=== PATIENT | male | born 1960 | race Caucasian/White ===

== ENCOUNTER 2018-11-10 11:42 | Observation (INO) ==
[2018-11-10] MEDS ORDERED: 0.9 % Sodium Chloride 1,000 ML IVC ONE (11:48)
[2018-11-10] MEDS ORDERED: Ondansetron 4 MG/2 ML VIAL IVP ONE ×2 (11:50→13:20)
[2018-11-10] MEDS ORDERED: Isovue-370 500 ML BOTTLE IVP ONE (11:50)
--- NOTE | 2018-11-10 12:00 | Emergency Department Note ---
Disposition Clinical Impression: Episode of syncope Qualifiers: Syncope type: unspecified Qualified Code(s): R55 - Syncope and collapse Disposition: Admitted As Inpatient Condition: Good Referrals: Jennifer Ochoa MD [Primary Care Provider] - Forms: ED Satisfaction Letter Time of Disposition: 15:02 General Adult HPI - General Chief complaint: ED Syncope Stated complaint: Syncope, Diaphoretic Time Seen by Provider: 11/10/18 11:48 Source: patient, family Limitations: no limitations Nursing Notes Reviewed: Yes Vital Signs Reviewed: Yes - History of Present Illness HPI Narrative: 58-year-old male presenting to the emergency department after syncopizing. [facility] get curtis removed after carpal tunnel surgery. After his curtis were removed patient passed out and became unresponsive for 2 minutes. He was very diaphoretic. Patient was neatly brought to the emergency department. When the patient arrived he states that this has happened one time before and that is when happens when he misses his Effexor. At this time he did denies any chest pain or shortness of breath. He discloses nausea but denies any vomiting. Pain Scale: 0 - Related Data Home Medications Medication Instructions Recorded Confirmed Montelukast [Singulair] 10 mg PO DAILY 02/27/16 11/10/18 Venlafaxine XR (24 HR) [Effexor XR] 75 mg PO DAILY 02/27/16 11/10/18 Cetirizine HCl [Zyrtec] 10 mg PO PRN PRN 10/28/18 11/10/18 Fluticasone Propionate Nasal 1 spray NS PRN PRN 10/28/18 11/10/18 [Flonase] Losartan Potassium 100 mg PO DAILY 10/28/18 11/10/18 hydroCHLOROthiazide 25 mg PO DAILY 10/28/18 11/10/18 [Hydrochlorothiazide] lamoTRIgine [Lamictal] 100 mg PO QAM 10/28/18 11/10/18 Allergies Allergy/AdvReac Type Severity Reaction Status Date / Time ciprofloxacin [From Cipro] Allergy Anaphylaxis Verified 11/10/18 13:18 All systems ED: reviewed and negative except as stated. Constitutional: Denies: fever Eyes: Reports: as per HPI ENT ED: Reports: as per HPI Cardiovascular: Denies: chest pain Respiratory: Denies: dyspnea Gastrointestinal: Reports: nausea Genitourinary: Reports: as per HPI Musculoskeletal: Reports: as per HPI Integumentary: Reports: as per HPI Neurological: Reports: other (Syncope) Psychiatric: Reports: as per HPI Endocrine: Reports: as per HPI Hematological/Lymphatic: Reports: as per HPI Allergic/Immunologic: Reports: as per HPI Past Medical History - Past Medical History Attestation: Yes The following information was validated with the patient. Medical history: Reports: hypertension Psychiatric history: Reports: depression - Social History Smoking Status: Never smoker Smokeless Tobacco Status: Yes Alcohol use: Reports: none Drug use: Reports: none Physical Exam - General Limitations: no limitations General appearance: alert, in no apparent distress - Head Head exam: atraumatic, normocephalic, normal inspection - Eye Eye exam: Present: EOMI. Absent: scleral icterus - ENT ENT exam: mucous membranes moist - Neck Neck exam: Present: full ROM - Chest Chest inspection: Present: symmetric chest wall rise - Respiratory Respiratory exam: Present: normal lung sounds bilaterally. Absent: respiratory distress, wheezes - Cardiovascular Cardiovascular exam: Present: regular rate, normal rhythm, normal heart sounds - Abdominal Exam Abdominal exam: Present: soft, Non-Tender. Absent: distention, guarding, rebound - Extremities Exam Extremities exam: Present: full ROM - Neurological Exam Neurological exam: Present: alert, oriented X3 - Psychiatric Psychiatric exam: Present: normal affect - Skin Skin exam: Present: diaphoresis Course Course Narrative: 58-year-old male presenting after a syncopal episode. In the room he is alert and oriented 3 and hemodynamically stable. Physical exam is significant for diaphoresis but is otherwise benign. At this time will obtain basic laboratory analysis including troponin, EKG. We will also obtain a CT of the head and a CTA of the chest for PE rule out. Disposition pending. Patient agrees with this plan. - Reevaluation(s) Reevaluation #1: Patient's laboratory analysis, CT of the head and CTA of the chest within normal limits. Patient has been stable throughout his stay. He remains alert and oriented 3 and hemodynamically stable. Due to patient's syncope and prolonged time to get back to baseline we will plan to admit him for further evaluation and treatment. Patient agrees with this plan. Vital Signs Temperature 97.8 F 11/10/18 11:43 Pulse Rate 56 11/10/18 11:43 Respiratory Rate 20 11/10/18 11:43 Blood Pressure 165/88 11/10/18 11:43 O2 Sat by Pulse Oximetry 93 11/10/18 11:43 Temperature 97.8 F 11/10/18 11:43 Pulse Rate 59 11/10/18 13:18 Respiratory Rate 18 11/10/18 13:18 Blood Pressure 184/91 11/10/18 13:18 O2 Sat by Pulse Oximetry 100 11/10/18 13:18 Oxygen Delivery Oxygen Delivery Room Air Medical Decision Making - Lab Data Result diagrams: 11/10/18 11:56 11/10/18 11:56 Lab Results 11/10/18 11/10/18 11/10/18 Range/Units 11:56 11:56 11:56 WBC 11.4 H (4.3-11.1) K/mcL RBC 4.96 (4.19-5.50) M/mcL Hgb 15.4 (12.9-16.9) g/dL Hct 45.6 (37.5-50.1) % MCV 91.9 (83.0-100.0) fL MCH 31.0 (28.0-33.3) pg MCHC 33.8 (31.6-35.5) g/dL RDW 11.9 (11.5-14.5) % Plt Count 283 (140-400) K/mcL MPV 9.9 (9.4-12.4) fL Immature Gran % 0.5 (0-4) % Seg Neutrophils % 58.3 % Lymphocytes % 29.9 % Monocytes % 8.8 % Eosinophils % 1.8 % Basophils % 0.7 % Neutrophils # 6.7 (1.6-8.9) K/mcL Lymphocytes # 3.4 (0.6-4.6) K/mcL Monocytes # 1.0 (0.0-1.3) K/mcL Eosinophils # 0.2 (0.0-0.6) K/mcL Basophils # 0.1 (0.0-0.2) K/mcL PT 11.1 (9.4-12.1) Seconds INR 1.0 APTT 26.4 (26.0-36.0) Seconds Sodium 139 (136-145) mEq/L Potassium 3.2 L (3.5-5.1) mEq/L Chloride 104 (98-107) mEq/L Carbon Dioxide 23 (23-29) mEq/L BUN 16 (6-20) mg/dL Creatinine 0.99 (0.70-1.30) mg/dL Est GFR ( Amer) > 60 (> 60) Est GFR (Non-Af Amer) > 60 (> 60) BUN/Creatinine Ratio 16 (6-26) Glucose 114 H (70-105) mg/dL POC Glucose (70-99) mg/dL Calculated Osmolality 290 (280-300) Calcium 9.4 (8.6-10.3) mg/dL Troponin I < 0.03 (< 0.04) ng/mL 11/10/18 Range/Units 11:57 WBC (4.3-11.1) K/mcL RBC (4.19-5.50) M/mcL Hgb (12.9-16.9) g/dL Hct (37.5-50.1) % MCV (83.0-100.0) fL MCH (28.0-33.3) pg MCHC (31.6-35.5) g/dL RDW (11.5-14.5) % Plt Count (140-400) K/mcL MPV (9.4-12.4) fL Immature Gran % (0-4) % Seg Neutrophils % % Lymphocytes % % Monocytes % % Eosinophils % % Basophils % % Neutrophils # (1.6-8.9) K/mcL Lymphocytes # (0.6-4.6) K/mcL Monocytes # (0.0-1.3) K/mcL Eosinophils # (0.0-0.6) K/mcL Basophils # (0.0-0.2) K/mcL PT (9.4-12.1) Seconds INR APTT (26.0-36.0) Seconds Sodium (136-145) mEq/L Potassium (3.5-5.1) mEq/L Chloride (98-107) mEq/L Carbon Dioxide (23-29) mEq/L BUN (6-20) mg/dL Creatinine (0.70-1.30) mg/dL Est GFR ( Amer) (> 60) Est GFR (Non-Af Amer) (> 60) BUN/Creatinine Ratio (6-26) Glucose (70-105) mg/dL POC Glucose 109 H (70-99) mg/dL Calculated Osmolality (280-300) Calcium (8.6-10.3) mg/dL Troponin I (< 0.04) ng/mL - EKG Data EKG #1 EKG attestation: Yes I reviewed and interpreted this EKG. EKG results narrative: Sinus rhythm. 58 bpm. VA interval 173, QRS 98, QTC 451. No sign of acute ST s egment elevation or ischemia. Compared to previous EKG completed on 02/24/2016 no significant changes noted
[2018-11-10 12:13] LABS: Basophils # 0.1 K/mcL (0.0-0.2); Basophils % 0.7 %; Eosinophils # 0.2 K/mcL (0.0-0.6); Eosinophils % 1.8 %; Hematocrit 45.6 % (37.5-50.1); Hemoglobin 15.4 g/dL (12.9-16.9); Immature Granulocytes % 0.5 % (0-4); Lymphocytes # 3.4 K/mcL (0.6-4.6); Lymphocytes % 29.9 %; Mean Corpuscular HGB Conc 33.8 g/dL (31.6-35.5); Mean Corpuscular Volume 91.9 fL (83.0-100.0); Mean Platelet Volume 9.9 fL (9.4-12.4); Monocytes % 8.8 %; Neutrophils # 6.7 K/mcL (1.6-8.9); Platelet Count 283 K/mcL (140-400); Red Blood Count 4.96 M/mcL (4.19-5.50); Red Cell Distribution Width 11.9 % (11.5-14.5); Segmented Neutrophils % 58.3 %; White Blood Count 11.4 K/mcL (4.3-11.1)
[2018-11-10 12:21] LABS: Prothrombin Time 11.1 Seconds (9.4-12.1)
[2018-11-10 12:24] LABS: Activated Partial Thrombo Time 26.4 Seconds (26.0-36.0)
--- NOTE | 2018-11-10 12:39 | Emergency Department Note ---
Disposition Clinical Impression: Episode of syncope Qualifiers: Syncope type: unspecified Qualified Code(s): R55 - Syncope and collapse Disposition: Admitted As Inpatient Condition: Good Referrals: Jennifer Ochoa MD [Primary Care Provider] - Forms: ED Satisfaction Letter Time of Disposition: 14:35 General Adult HPI - General Chief complaint: ED Syncope Stated complaint: Syncope, Diaphoretic Time Seen by Provider: 11/10/18 11:48 Source: patient, family Limitations: no limitations - History of Present Illness Pain Scale: 0 - Related Data Home Medications Medication Instructions Recorded Confirmed Montelukast [Singulair] 10 mg PO DAILY 02/27/16 11/10/18 Venlafaxine XR (24 HR) [Effexor XR] 75 mg PO DAILY 02/27/16 11/10/18 Cetirizine HCl [Zyrtec] 10 mg PO PRN PRN 10/28/18 11/10/18 Fluticasone Propionate Nasal 1 spray NS PRN PRN 10/28/18 11/10/18 [Flonase] Losartan Potassium 100 mg PO DAILY 10/28/18 11/10/18 hydroCHLOROthiazide 25 mg PO DAILY 10/28/18 11/10/18 [Hydrochlorothiazide] lamoTRIgine [Lamictal] 100 mg PO QAM 10/28/18 11/10/18 Allergies Allergy/AdvReac Type Severity Reaction Status Date / Time ciprofloxacin [From Cipro] Allergy Anaphylaxis Verified 11/10/18 13:18 Past Medical History - Past Medical History Medical history: Reports: hypertension Psychiatric history: Reports: depression - Social History Smoking Status: Never smoker Smokeless Tobacco Status: Yes Alcohol use: Reports: none Drug use: Reports: none Physical Exam - General Limitations: no limitations General appearance: alert, in no apparent distress Course Vital Signs Temperature 97.8 F 11/10/18 11:43 Pulse Rate 56 11/10/18 11:43 Respiratory Rate 20 11/10/18 11:43 Blood Pressure 165/88 11/10/18 11:43 O2 Sat by Pulse Oximetry 93 11/10/18 11:43 Temperature 97.8 F 11/10/18 11:43 Pulse Rate 59 11/10/18 13:18 Respiratory Rate 18 11/10/18 13:18 Blood Pressure 184/91 11/10/18 13:18 O2 Sat by Pulse Oximetry 100 11/10/18 13:18 Oxygen Delivery Oxygen Delivery Room Air Medical Decision Making - Lab Data Result diagrams: 11/10/18 11:56 11/10/18 11:56 Lab Results 11/10/18 11/10/18 11/10/18 Range/Units 11:56 11:56 11:56 WBC 11.4 H (4.3-11.1) K/mcL RBC 4.96 (4.19-5.50) M/mcL Hgb 15.4 (12.9-16.9) g/dL Hct 45.6 (37.5-50.1) % MCV 91.9 (83.0-100.0) fL MCH 31.0 (28.0-33.3) pg MCHC 33.8 (31.6-35.5) g/dL RDW 11.9 (11.5-14.5) % Plt Count 283 (140-400) K/mcL MPV 9.9 (9.4-12.4) fL Immature Gran % 0.5 (0-4) % Seg Neutrophils % 58.3 % Lymphocytes % 29.9 % Monocytes % 8.8 % Eosinophils % 1.8 % Basophils % 0.7 % Neutrophils # 6.7 (1.6-8.9) K/mcL Lymphocytes # 3.4 (0.6-4.6) K/mcL Monocytes # 1.0 (0.0-1.3) K/mcL Eosinophils # 0.2 (0.0-0.6) K/mcL Basophils # 0.1 (0.0-0.2) K/mcL PT 11.1 (9.4-12.1) Seconds INR 1.0 APTT 26.4 (26.0-36.0) Seconds Sodium 139 (136-145) mEq/L Potassium 3.2 L (3.5-5.1) mEq/L Chloride 104 (98-107) mEq/L Carbon Dioxide 23 (23-29) mEq/L BUN 16 (6-20) mg/dL Creatinine 0.99 (0.70-1.30) mg/dL Est GFR ( Amer) > 60 (> 60) Est GFR (Non-Af Amer) > 60 (> 60) BUN/Creatinine Ratio 16 (6-26) Glucose 114 H (70-105) mg/dL POC Glucose (70-99) mg/dL Calculated Osmolality 290 (280-300) Calcium 9.4 (8.6-10.3) mg/dL Troponin I < 0.03 (< 0.04) ng/mL 11/10/18 Range/Units 11:57 WBC (4.3-11.1) K/mcL RBC (4.19-5.50) M/mcL Hgb (12.9-16.9) g/dL Hct (37.5-50.1) % MCV (83.0-100.0) fL MCH (28.0-33.3) pg MCHC (31.6-35.5) g/dL RDW (11.5-14.5) % Plt Count (140-400) K/mcL MPV (9.4-12.4) fL Immature Gran % (0-4) % Seg Neutrophils % % Lymphocytes % % Monocytes % % Eosinophils % % Basophils % % Neutrophils # (1.6-8.9) K/mcL Lymphocytes # (0.6-4.6) K/mcL Monocytes # (0.0-1.3) K/mcL Eosinophils # (0.0-0.6) K/mcL Basophils # (0.0-0.2) K/mcL PT (9.4-12.1) Seconds INR APTT (26.0-36.0) Seconds Sodium (136-145) mEq/L Potassium (3.5-5.1) mEq/L Chloride (98-107) mEq/L Carbon Dioxide (23-29) mEq/L BUN (6-20) mg/dL Creatinine (0.70-1.30) mg/dL Est GFR ( Amer) (> 60) Est GFR (Non-Af Amer) (> 60) BUN/Creatinine Ratio (6-26) Glucose (70-105) mg/dL POC Glucose 109 H (70-99) mg/dL Calculated Osmolality (280-300) Calcium (8.6-10.3) mg/dL Troponin I (< 0.04) ng/mL Attestation Statement - Attestation Attestation: Omayra Rosa D.O., examined this patient and my medical decision-making was reviewed with the Resident Physician. I agree with the documented findings, disposition and treatment plan as described except to the extent set forth below. This is a 58-year-old male presenting from the orthopedic clinic due to a syncopal episode. The patient was at the clinic having his sutures removed from a recent cubital tunnel and carpal tunnel surgery. states that as the staff was walking out of the room the patient went unresponsive. She believes she was out for approximately 2 minutes. No seizure-like activity. He was rather diaphoretic during that time. Patient awoke without a postictal phase. States that he felt tired and woke up this morning. He denies any chest pain or shortness of breath. No neck pain, back pain or abdominal pain. He actually says this happened before when he missed his Effexor. He has no history of CAD, DVT or PE. General: Alert, diaphoretic HENT: Normocephalic, Atraumatic Neck: No JVD Cardiovascular: Bradycardic, regular rhythm No appreciable murmurs Respiratory: Lungs CTAB. No wheezing/rhonchi Abdominal: Soft, non tender. No peritoneal findings Extremities: No peripheral edema Neuro: Alert, oriented 3, cranial nerves II through XII grossly intact, normal sensation in the upper and lower extremities bilaterally. Normal motor strength in the upper and lower extremities bilaterally. Mentating appropriately, No focal deficits Skin: Warm, Dry Plan: EKG, CT head, CTA of the chest given recent procedure and syncope, labs. Patient received some IV fluids and Zofran. Anticipate admission. ED Procedure Note: EKG interpretation - I agree with the resident physician's documentation and interpretation of the patient's EKG. Sinus bradycardia with rate of 58 beats or minute. Normal axis. Normal int ervals. Normal R-wave progression. T-wave inversions in lead 3. No gross ST elevations or depressions. No acute ischemic findings. Imaging and labs reviewed. No gross derangements. Patient will be admitted for syncope.
[2018-11-10 12:40] LABS: BUN/Creatinine Ratio 16 (6-26); Blood Urea Nitrogen 16 mg/dL (6-20); Calcium 9.4 mg/dL (8.6-10.3); Carbon Dioxide 23 mEq/L (23-29); Chloride 104 mEq/L (98-107); Glucose 114 mg/dL (70-105); Osmolality,Calculated 290 (280-300); Potassium 3.2 mEq/L (3.5-5.1); Sodium 139 mEq/L (136-145); Troponin I < 0.03 ng/mL (< 0.04); eGFR For African Americans > 60 (> 60); eGFR For Non-African Americans > 60 (> 60)
[2018-11-10] MEDS ORDERED: *HR* Promethazine 25 MG/ML VIAL IVP PRN (15:05)
[2018-11-10] MEDS ORDERED: Naloxone 0.4 MG/ML INJ IVP PRN (15:05)
--- NOTE | 2018-11-10 17:10 | Internal Med History&Physical ---
Date of Encounter: 11/10/18 Time of Encounter: 16:47 Internal Medicine - H&P: HPI Chief complaint: Syncope Admitted From: Home Plans for Post Hospital Care: Home History of present illness: Mr. Dietrich is a 58 year old male with hx of HTN, RAIN, and heart murmur presents after an episode of syncope. She recently had carpal tunnel and ulnar nerve release completed and was [facility] today getting curtis removed. Says that they were unwrapping the dressing when he started feeling dizzy and sweating profusely. Says that the last thing he remembers is his fanning air on him to cool off. Believes he lost consciousness for about 2 minutes after which she is brought to the emergency department. Denies chest pain before event or having issues with chest pain possibly. No clonic tonic activity after the event. No said he missed all of his morning medications this morning because he was in a meek to get to the orthopedic office. Says that he has had severe systemic symptoms of lightheadedness/dizziness when he missed doses of Effexor in the past but has never had a loss of consciousness event. Recently hospitalized earlier this year at [facility] after having a systemic allergic reaction to ciprofloxacin. Says that he underwent a stress test that was negative. Underwent echocardiography and he says that they discovered "a murmur." No dyspnea on exertion or lower extremity edema. No issues with chest pain. Past Med Surg Social Fam HX - Past Medical History Medical history: hypertension Additional medical history: ganglion cyst of right foot. depression. chewing tobacco use Psychiatric history: depression - Past Surgical History Additional surgical history: shunt in left ear, Carpal tunnel sx left wrist and sx to left elbow - Social History Smoking Status: Never smoker Smokeless Tobacco Status: Yes Alcohol use: none Drug use: none Internal Medicine - H&P: Meds Montelukast [Singulair] 10 mg PO DAILY 02/27/16 [History] Venlafaxine XR (24 HR) [Effexor XR] 75 mg PO DAILY 02/27/16 [History] Cetirizine HCl [Zyrtec] 10 mg PO PRN PRN 10/28/18 [History] Fluticasone Propionate Nasal [Flonase] 1 spray NS PRN PRN 10/28/18 [History] Losartan Potassium 100 mg PO DAILY 10/28/18 [History] hydroCHLOROthiazide [Hydrochlorothiazide] 25 mg PO DAILY 10/28/18 [History] lamoTRIgine [Lamictal] 100 mg PO QAM 10/28/18 [History] Allergy/AdvReac Type Severity Reaction Status Date / Time ciprofloxacin [From Cipro] Allergy Anaphylaxis Verified 11/10/18 13:18 Review of systems: General: Fevers / Chills / Weight loss / Night sweats / diaphoresis Eyes: Blurry Vision / Change in Vision HENT: Ear Pain / Ear Drainage / Rhinorrhea / Throat Pain / Lymphadenopathy Cardiovascular: Chest Pain / Palpatations / Orthopnea / BANSAL / Weight gain / lightheadedness / dizziness Lungs: Dyspnea / Wheezing / Cough / Sputum production / Pleurisy Abdomen: Abdomen pain / Abdominal distention / Nausea / Vomiting / Diarrhea / Const : Dysuria / Urinary Frequency / Urinary Urgency / Hematuria Extremities: LE edema / Ext pain / Ext erythema Skin: Rashes / Abrasions / Contusions Psych: Hallucinations / Anxiety / Depression Neuro: Weakness / Numbness / Tingling / Facial Droop / Dysphagia - Constitutional Vitals: Temp Pulse Resp BP Pulse Ox 98.0 F 65 18 148/60 94 11/10/18 16:09 11/10/18 16:11/10/18 16:11/10/18 16:11/10/18 16:09 Exam: General: Ill-appearing and in no acute distress HEENT: No erythema of posterior pharynx. No exudates. Lymphatics: No mandibular or cervical lymphadenopathy Cardiovascular: RRR. Systolic heart murmur at left sternal border. No chest wall tenderness. Lungs: Clear to auscelltation bilaterally. Regular chest rise. Abdomen: Non-tender. No rebound or gaurding. Nl bowel sounds. Extremities: No edema. 2+ pulses radial and pedal pulses Skin: No rahses, abrasions, or contusions. Nl cap refill. Psych: Nl attention. 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 5/5 strength. Sensation to light touch and pinprick intact. Internal Med - H&P Results - Labs CBC & Chem 7: 11/10/18 11:56 11/10/18 11:56 Labs: Short CBC 11/10/18 Range/Units 11:56 WBC 11.4 H (4.3-11.1) K/mcL Hgb 15.4 (12.9-16.9) g/dL Hct 45.6 (37.5-50.1) % Plt Count 283 (140-400) K/mcL Neutrophils # 6.7 (1.6-8.9) K/mcL BMP 11/10/18 11:56 Sodium 139 Potassium 3.2 L Chloride 104 Carbon Dioxide 23 BUN 16 Creatinine 0.99 Glucose 114 H Calcium 9.4 Cardiac Enzymes 11/10/18 Range/Units 11:56 Troponin I < 0.03 (< 0.04) ng/mL - Impressions ITS Impressions Chest X-Ray 11/10/18 13:10 IMPRESSION: No acute process. D/ / Jez San MD / Jez San MD Interpreting Provider: Jez San MD Chest CTA 11/10/18 14:25 IMPRESSION: No evidence of pulmonary embolism or acute pulmonary abnormality. D/ / Tristen Rosas MD / Tristen Rosas MD Interpreting Provider: Tristen Rosas MD Head CT 11/10/18 14:25 IMPRESSION: No acute intracranial abnormality. D/ / Charlie Mojica MD / Charlie Mojica MD Interpreting Provider: Charlie Mojica MD - Assessment and Plan (1) Episode of syncope Current Visit: Yes Status: Acute Qualifiers: Syncope type: unspecified Qualified Code(s): R55 - Syncope and collapse (2) Hx of cardiac murmur Current Visit: Yes Status: Acute (3) RAIN (generalized anxiety disorder) Current Visit: Yes Status: Acute (4) Essential hypertension Current Visit: Yes Status: Acute - Summary of Assessment and Plan Summary of Assessment and Plan: Syncope with Prolonged LOC Event Hx of Heart Murmur Patient with hx of HTN, RAIN, and heart murmur presents after an episode of syncope in the setting of missing a home doses of medications, stable vital signs on admission, systolic murmur on physical exam, unremarkable labs, no changes on EKG, and unremarkable initial imaging. -Etiology of event not entirely clear -Sounds to have had a vasovagal event due to pain/discomfort from removal of dressing, however, prolonged loss of consciousness would be unusual with this -History of murmur and systolic murmur on physical exam so valvular heart disease a consideration -Could be related to missing Effexor dose but again this would be a strange withdrawal reaction -No evidence of Brugada's, WPW, or prlonged qtc on EKG -No evidence of ischemic event (trop and EKG neg) or PE (CTA neg) PLAN: - Monitor on telemetry overnight - Echocardiogram - Obtain records from [facility] Generalized Anxiety Disorder - Continue home medications Essential Hypertension - Continue home medications - Time Spent With Patient Total time spent is greater than 50% in coordination of care (as documented) at patient's floor/unit and/or counseling patient:
[2018-11-10] MEDS ORDERED: Fluticasone Propionate Nasal 50 MCG/SPRAY BOTTLE NS PRN (17:25)
[2018-11-10] MEDS ORDERED: Loratadine 10 MG TABLET PO PRN (17:25)
[2018-11-10] MEDS: Venlafaxine XR (24 HR) 75 MG CAP.ER.24H PO SCH (18:46)
[2018-11-10] MEDS: hydroCHLOROthiazide 25 MG TABLET PO SCH (18:47)
[2018-11-10] MEDS: lamoTRIgine 100 MG TABLET PO SCH (18:48)
--- NOTE | 2018-11-10 22:01 | Electrocardiograph Report ---
[place] [id number] Test Date: 2018-11-10 Pat Name: John Dietrich Department: EXAM1 Room: 3B23 Gender: M Division Leader: : 1960 Requested By: Delmi Gaxiola Order Number: [id number] Reading MD: Marisela Flowers Measurements Intervals Mozier Rate: 58 P: 37 FL: 173 QRS: 17 QRSD: 98 T: 1 QT: 459 QTc: 451 Interpretive Statements Sinus rhythm Borderline T abnormalities, inferior leads Electronically Signed On 11-10-2018 21:59:38 EDT by Marisela Flowers
[2018-11-11 02:07] LABS: Basophils # 0.1 K/mcL (0.0-0.2); Basophils % 0.5 %; Eosinophils # 0.2 K/mcL (0.0-0.6); Eosinophils % 1.3 %; Hematocrit 40.4 % (37.5-50.1); Immature Granulocytes % 0.4 % (0-4); Lymphocytes # 2.5 K/mcL (0.6-4.6); Mean Corpuscular HGB Conc 33.4 g/dL (31.6-35.5); Mean Corpuscular Volume 92.9 fL (83.0-100.0); Monocytes # 0.7 K/mcL (0.0-1.3); Monocytes % 5.8 %; Neutrophils # 9.1 K/mcL (1.6-8.9); Platelet Count 226 K/mcL (140-400); Red Blood Count 4.35 M/mcL (4.19-5.50); White Blood Count 12.7 K/mcL (4.3-11.1)
[2018-11-11 02:09] LABS: Hemoglobin 13.5 g/dL (12.9-16.9)
[2018-11-11 02:24] LABS: BUN/Creatinine Ratio 16 (6-26); Blood Urea Nitrogen 14 mg/dL (6-20); Calcium 8.8 mg/dL (8.6-10.3); Carbon Dioxide 25 mEq/L (23-29); Chloride 103 mEq/L (98-107); Glucose 111 mg/dL (70-105); Osmolality,Calculated 285 (280-300); Potassium 3.9 mEq/L (3.5-5.1); Sodium 137 mEq/L (136-145); eGFR For African Americans > 60 (> 60); eGFR For Non-African Americans > 60 (> 60)
[2018-11-11] MEDS: hydroCHLOROthiazide 25 MG TABLET PO SCH (08:08)
[2018-11-11] MEDS: lamoTRIgine 100 MG TABLET PO SCH (08:08)
[2018-11-11] MEDS: Venlafaxine XR (24 HR) 75 MG CAP.ER.24H PO SCH (08:08)
[2018-11-11 11:26] VITALS: BP 154/82
--- NOTE | 2018-11-11 13:28 | Discharge Summary ---
Date of Encounter: 11/11/18 Time of Encounter: 13:28 - Discharge Diagnosis (1) Episode of syncope Priority: Primary Status: Acute Qualifiers: Syncope type: unspecified Qualified Code(s): R55 - Syncope and collapse (2) Hx of cardiac murmur Priority: Secondary Status: Acute (3) RAIN (generalized anxiety disorder) Priority: Secondary Status: Acute (4) Essential hypertension Priority: Secondary Status: Acute Hospital course: Mr. Dietrich is a 58 year old male with hx of HTN, RAIN, and heart murmur presented after an episode of syncope while he was getting curtis removed at the orthopedic office from a recent carpal tunnel and ulnar nerve release. Patient believes that was related to forgetting his dose of Effexor in the morning of, however, more likely a vasovagal response to pain during staple removal. Says he has a history of murmur. Echocardiogram completed with evidence of mild tricuspid and pulmonic valve regurgitation, which would not explain patient's presentation. No notable EKG abnormalities and no events on telemetry during hospital stay. Patient was advised to take his medications as directed, follow up with his primary care provider, and get referred for an outpatient sleep study given NELLY habitus and right-sided valve findings on echocardiogram. Discharge discussed with: patient - Time Spent with Patient Total time spent providing and/or coordinating discharge services: 25 minutes Time spent: Less than 30 minutes - Discharge Medications Prescriptions: Continued Venlafaxine XR (24 HR) [Effexor XR] 75 mg PO DAILY Montelukast [Singulair] 10 mg PO DAILY hydroCHLOROthiazide [Hydrochlorothiazide] 25 mg PO DAILY Cetirizine HCl [Zyrtec] 10 mg PO DAILY PRN PRN Reason: Allergy Symptoms Losartan Potassium 100 mg PO DAILY lamoTRIgine [Lamictal] 100 mg PO QAM Fluticasone Propionate Nasal [Flonase] 1 spray NS DAILY PRN PRN Reason: Allergy Symptoms Home Medications: Montelukast [Singulair] 10 mg PO DAILY 02/27/16 [History] Venlafaxine XR (24 HR) [Effexor XR] 75 mg PO DAILY 02/27/16 [History] Cetirizine HCl [Zyrtec] 10 mg PO DAILY PRN 10/28/18 [History] Fluticasone Propionate Nasal [Flonase] 1 spray NS DAILY PRN 10/28/18 [History] Losartan Potassium 100 mg PO DAILY 10/28/18 [History] hydroCHLOROthiazide [Hydrochlorothiazide] 25 mg PO DAILY 10/28/18 [History] lamoTRIgine [Lamictal] 100 mg PO QAM 10/28/18 [History] Allergies/Adverse Reactions: Allergy/AdvReac Type Severity Reaction Status Date / Time ciprofloxacin [From Cipro] Allergy Anaphylaxis Verified 11/10/18 13:18 Date of admission: 11/10/18 15:12 Primary care physician: Jennifer Ochoa MD - Constitutional Vitals: Temp Pulse Resp BP Pulse Ox 97.9 F 71 16 154/82 94 11/11/18 11:25 11/11/18 11:25 11/11/18 11:25 11/11/18 11:25 11/11/18 11:25 Exam: General: Ill-appearing and in no acute distress HEENT: No erythema of posterior pharynx. No exudates. Lymphatics: No mandibular or cervical lymphadenopathy Cardiovascular: RRR. Systolic heart murmur at left sternal border. No chest wall tenderness. Lungs: Clear to auscelltation bilaterally. Regular chest rise. Abdomen: Non-tender. No rebound or gaurding. Nl bowel sounds. Extremities: No edema. 2+ pulses radial and pedal pulses Skin: No rahses, abrasions, or contusions. Nl cap refill. Psych: Nl attention. 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 5/5 strength. Sensation to light touch and pinprick intact. - Patient Status Disposition: Home, Self-Care Functional capacity at discharge: independent ambulation Overall status at discharge: patient is back to baseline - Discharge Instructions Follow Up With: Jennifer Ochoa MD [Primary Care Provider] - - Diet and Activity Activity: increase activity as tolerated Diet: advance to your usual diet
== END 2018-11-11 15:10 | disposition home or self-care (01) ==
LOC: 3BNU 11:42 → EMEROOARM 11:42 → 3BNU 16:09
PROVIDERS: ADMIT Pharmacist; ATTEND Pharmacist